=== PATIENT | male | born 1980 | race Caucasian/White ===

== ENCOUNTER 2023-10-02 11:35 | Inpatient (IN) ==
--- NOTE | 2023-10-02 11:43 | Emergency Department Note ---
Impression & Plan Cellulitis of neck, Fever, Acute neck pain ED Provider Note NAME: JUNIOR WETZEL AGE: 43 SEX: M : 1980 ARRIVES VIA: Walk-In INFORMANT: Patient, ED PROVIDER(S): Fidel Lorenzo MD CHIEF COMPLAINT: Sore throat, rash, fever MEDICAL DECISION MAKING: Patient presents with sore throat rash and fever. IV was established and blood work obtained along with strep test mono and tickborne diseases. Patient was treated with IV Toradol and IV fluids. CT soft tissue neck obtained along with a screening chest x-ray. The patient's blood work shows a normal white count H&H and platelet count. The patient's kidney function is unremarkable with normal electrolytes. Patient's Babesia and Anaplasma smears are negative. The patient's Lyme screen negative. Patient strep negative [place] negative. Patient's chest x-ray negative. CT soft tissue neck I did discuss with the radiologist Dr. Chi. Extensive inflammatory changes noted to the right neck extending from the right upper neck to the upper chest wall. Also noted to the right superior mediastinum and inflammatory changes involving the right parapharyngeal fat and retropharyngeal soft tissues. Patient's airway is patent not stridulous and is handling secretions. Given the extensive nature without clear etiology I did speak with the on-call hospitalist service Dr. Pineda and the patient was admitted to the medicine service Discussion w/ other healthcare providers: Dr. Chi with radiology Dr. Pineda with inpatient medicine service Prior /Outside records reviewed: None Differential diagnosis: Viral syndrome, otitis, pharyngitis, pneumonia, influenza, meningitis, urinary tract infection, sepsis, bacteremia, as well as other pathologies. Diagnostics, as interpreted by me: ECG: Normal sinus rhythm, rate of 76, normal intervals, normal axis no ST elevations or TWI Cardiac monitoring: An order was placed for continuous cardiac monitoring. The monitor shows a rate of 76 with sinus rhythm. Patient was placed on pulse oximetry Medical decision rules: None Imaging studies: I informally interpreted the patient's chest x-ray does not show obvious pneumonia or pneumothorax with formal report to follow. HPI: Patient presents due to concern for right-sided neck swelling fever as well as rash. Patient was seen by myself several days ago at which time the patient had mild swelling to the patient believes that this has worsened. The patient still has had fever. Patient states that he did have most recent fever although not 100.4 but was 100.2 at 3:00 this morning. The patient did take Motrin. The patient states that he has felt chilled. He did develop a rash yesterday and was started on Bactrim which was prescribed by his uncle 2 days prior. Patient states that he does have some itchiness but only at the ankles. The patient's daughter was recently ill. No recent travel. Patient denies any changes in creams detergents or diet. Patient denies any falls or trauma no nausea vomiting or abdominal pain or diarrhea. The patient does complain of some nasal congestion postnasal drip. Patient did have a negative bio fire and strep test completed during his most recent evaluation several days ago. Patient denies any issues with breathing or swallowing. Patient denies any insect bites PAST MEDICAL HISTORY: See Below PAST SURGICAL HISTORY: See Below SOCIAL HISTORY: See Below HOME MEDICATIONS: See Below ALLERGIES: See Below VITALS: See Below PHYSICAL EXAMINATION: GENERAL: NAD, non-toxic. EYE EXAM: Normal conjunctiva. PERRL, no anisocoria and EOM's grossly intact w/o pain. OROPHARYNX: Moist mucus membranes, grossly normal dentition. Posterior pharynx is clear with no tonsillar uvular deviation or swelling. NECK: Trachea midline, no stridor. Supple, no nuchal rigidity, right-sided swelling noted overlying the SCM as well as lymphadenopathy posterior to the SCM, no signs of meningismus. FROM of the neck with good chin to chest and neck extension. LUNGS: Clear to auscultation. Normal chest wall mechanics. HEART: NSR, no MRG. ABDOMEN: Abdomen soft, non-tender, no masses, no rebound or guarding. BACK: No CVA TTP. SKIN: Diffuse blanching maculopapular nonconfluent rash located over the extremities. UPPER EXTREMITIES: Upper extremities are grossly normal. LOWER EXTREMITIES: Grossly normal, no edema. NEURO EXAM: A&O x3, cranial nerves II-XII grossly intact, normal speech, moves all 4 extremities. Past Med/Surg History Problem List (Updated 10/02/23 @ 15:27 by Fidel Lorenzo MD) Cellulitis of neck (Acute) Adenopathy, cervical (Acute) Acute neck pain (Acute) Fever (Acute) Social History Smoking Status: Never smoker Preferred Language: Icelandic Feels Safe at Home: Yes Allergies Allergies Allergy/AdvReac Type Severity Reaction Status Date / Time Penicillins Allergy Anaphylaxis Verified 10/02/23 15:11 Home Meds Home Medications Medication Instructions Recorded Confirmed atorvastatin 20 mg tablet 20 mg PO DAILY 10/02/23 10/02/23 levothyroxine 150 mcg tablet 150 mcg PO DAILY 10/02/23 10/02/23 (Synthroid) Results & Data (ED) Vital Signs Vital Signs - 24 hr 10/02/23 11:38 10/02/23 12:26 10/02/23 12:38 Temperature 36.6 C Temperature Source Oral Pulse Rate 73 77 Pulse Rate [Apical] Pulse Rhythm [Apical] Respiratory Rate 18 Respiratory Effort / Characteristics Non-Labored Spontaneous Respiratory Depth Normal Blood Pressure 146/80 H Blood Pressure [Right Arm] Blood Pressure Mean 102 Blood Pressure Mean [Right Arm] Blood Pressure Position Sitting Pulse Oximetry 99 99 Oxygen Delivery Method Room Air Room Air Sepsis Recent Fever Within 48 Hours Yes Sepsis New/Unexplained Change in Mental Status No Sepsis Action Taken by Nursing No Action Required 10/02/23 15:00 Temperature Temperature Source Pulse Rate Pulse Rate [Apical] 69 Pulse Rhythm [Apical] Regular Respiratory Rate 19 Respiratory Effort / Characteristics Respiratory Depth Blood Pressure Blood Pressure [Right Arm] 156/85 H Blood Pressure Mean Blood Pressure Mean [Right Arm] 108 Blood Pressure Position Pulse Oximetry 97 Oxygen Delivery Method Room Air Sepsis Recent Fever Within 48 Hours Sepsis New/Unexplained Change in Mental Status Sepsis Action Taken by Half-Way Medications Current Medication List: was personally reviewed by me Laboratory Data Attestation: I reviewed the patient's lab results. 10/02/23 12:45 10/02/23 12:45 Lab Results 10/02/23 Range/Units 12:45 WBC 8.38 (4.8-10.8) K/ul RBC 5.46 (4.70-6.10) M/uL Hgb 15.8 (14.0-18.0) g/dl Hct 46.6 (42.0-52.0) % MCV 85.3 (80.0-100.0) fL MCH 28.9 (25.0-34.0) pg MCHC 33.9 (32.0-36.0) g/dL RDW Std Deviation 39.8 (36.4-46.3) fL RDW Coeff of Vicki 12.9 (11.5-14.5) % Plt Count 229 (130-400) K/uL MPV 10.0 (9.4-12.4) fL Immature Gran % (Auto) 0.2 % Neut % (Auto) 77.2 % Lymph % (Auto) 9.2 % [place] % (Auto) 10.3 % Eos % (Auto) 2.7 % Baso % (Auto) 0.4 % Neut # (Auto) 6.47 (1.40-6.50) K/uL Lymph # (Auto) 0.77 L (1.20-3.40) K/uL [place] # (Auto) 0.86 H (0.11-0.59) K/uL Eos # (Auto) 0.23 (0.00-0.50) K/uL Baso # (Auto) 0.03 (0.00-0.20) K/uL Immature Gran # (Auto) 0.02 (0.01-0.20) K/uL RBC Morphology Unremarkable Sodium 137 (136-145) mmol/L Potassium 4.1 (3.5-5.1) mmol/L Chloride 101 (98-107) mmol/L Carbon Dioxide 27 (21-32) mmol/L Anion Gap 9 (3-11) BUN 15 (6-23) mg/dl Creatinine 1.08 (0.6-1.4) mg/dl Est Cr Clr Drug Dosing 95.1 ml/min Est GFR ( Amer) 96.2 ml/min Est GFR (Non-Af Amer) 83.0 ml/min BUN/Creatinine Ratio 13.9 (10-20) Glucose 97 (70-99(Fasting)) mg/dl Calcium 9.3 (8.6-10.3) mg/dl Magnesium 2.2 (1.7-2.4) mg/dl Total Bilirubin 0.9 (0.2-1.0) mg/dl AST 17 (13-39) U/L ALT 21 (7-52) U/L Alkaline Phosphatase 75 (34-104) U/L Total Protein 7.7 (6.0-8.3) gm/dl Albumin 4.4 (3.4-5.0) gm/dl Globulin 3.3 (2.5-4.0) gm/dl Albumin/Globulin Ratio 1.3 (0.9-2) Procalcitonin 0.14 (0-0.5) ng/ml TSH 3.452 (0.300-4.500) uIu/ml Anaplasma Smear See Comment Babesia Smear See Comment Lyme Disease Screen Negative (Negative) Monoscreen Negative (Negative) Group A Strep (PCR) NOT DETECTED (NotDetected) Administered Medications Ceftriaxone Sodium (Rocephin) 2,000 mg in 50 mls @ 100 mls/hr IV NOW STA Stop: 10/02/23 15:28 Last Admin: 10/02/23 15:09 Dose: 100 mls/hr Documented By: ARPIT Discontinued Medications Sodium Chloride (Nss) 1,000 mls @ 999 mls/hr IV .Q1H1M MAGO Stop: 10/02/23 13:00 Last Admin: 10/02/23 12:32 Dose: 999 mls/hr Documented By: CINDA Ioversol (Optiray 320 100ml) 94 ml IV ONCE ONE Stop: 10/02/23 14:11 Last Admin: 10/02/23 14:10 Dose: 94 ml Documented By: EVERETT Ketorolac Tromethamine (Ketorolac Tromethamine 15 Mg/Ml Vial) 10 mg IV NOW ONE Stop: 10/02/23 12:01 Last Admin: 10/02/23 12:32 Dose: 10 mg Documented By: CINDA Imaging Data Radiologist's Impression: Soft Tissue Neck CT 10/02/23 12:00 CT SCAN OF THE NECK WITH IV CONTRAST CLINICAL HISTORY: Right-sided neck pain and swelling. COMPARISON STUDY: No priors. TECHNIQUE: Following the IV administration of 94 cc of Optiray 320, CT scan of the soft tissues of the neck was performed from the skull base to the upper chest. Images are reviewed in the axial, sagittal, and coronal planes. IV contrast was administered without complication. A dose lowering technique was utilized adhering to the principles of ALARA. FINDINGS: Soft tissues: There is extensive deep soft tissue inflammation and trace subcutaneous fluid seen throughout the right neck. This extends from below the right parotid gland into the right upper chest, and there is corresponding inflammation of the right parapharyngeal fat. There is also edema within the retropharyngeal tissues. The right sternocleidomastoid muscle appears mildly enlarged and edematous, inflammatory change is seen around the right carotid artery and jugular vein. These vessels remain patent. There are numerous mildly enlarged right cervical chain lymph nodes. No organized fluid collection is seen to suggest abscess. Mild inflammation is seen extending into the right aspect of the superior mediastinum. Edema also involves the peripheral right paraspinous musculature. No soft tissue gas is seen in the right neck. Pharynx: As noted above there is infiltration of the right parapharyngeal fat as well as the retropharyngeal fat. No organized fluid collection is seen to indicate abscess. The left parapharyngeal fat is maintained. The airway is patent. There is no evidence of mass lesion. The vocal cords are symmetric. The epiglottis is normal. There is no significant periodontal disease. Lymphadenopathy: Mildly enlarged right cervical chain lymph nodes are likely reactive. Thyroid: Normal in size and attenuation. Salivary glands: The parotid and submandibular glands are within normal limits. Brain parenchyma: The visualized brain parenchyma at the skull base is normal in appearance. Vascular structures: The carotid arteries and jugular veins are patent bilaterally. Skeletal structures: Imaged portions of the calvarium at the skull base are within normal limits. The cervical spine appears intact noting discectomy change at C6-C7. Orbits: The bony facets are intact and orbital contents are normal as visualized. Sinuses and mastoids: There is mild mucosal thickening within the right ethmoid sinuses. Trace mucosal thickening seen in maxillary antra noting a 1.9 cm retention cyst on the right. The mastoid air cells are well pneumatized. Lung apices: Visualized apical lung parenchyma is clear. IMPRESSION: 1. There is an extensive inflammatory process seen extending from the right upper neck into the right chest wall and right superior mediastinum as detailed above. This almost certainly on an infectious basis, and the source of infection is not clearly delineated. 2. No organized fluid collection is seen to indicate abscess. 3. Inflammatory change involves the right parapharyngeal fat as well as the retropharyngeal soft tissues. 4. The airway appears patent. 5. The right internal jugular vein is patent. 6. Additional findings as above. ACT 112: Negative or not required by law. Electronically signed by: Hugh Can M.D. 10/02/2023 2:59 PM Chest X-Ray 10/02/23 12:02 SINGLE VIEW CHEST CLINICAL HISTORY: Generalized weakness. FINDINGS: An AP, portable, upright chest radiograph is obtained. No prior studies are available for comparison at the time of dictation. The cardiomediastinal silhouette is unremarkable. The lungs and pleural spaces are clear. No pneumothorax is seen. The bony thorax is grossly intact. IMPRESSION: No active disease in the chest. ACT 112: Negative or not required by law. Electronically signed by: Hugh Can M.D. 10/02/2023 12:33 PM Discharge Plan Visit Data Chief Complaint: Illness Stated Complaint: FEVER, NECK PAIN/SWELLING , RASH ED Provider: Fidel Lorenzo Discharge Problem: Cellulitis of neck, Fever, Acute neck pain Forms Stand Alone Forms: [facility] Prescriptions Prescriptions: No Action atorvastatin 20 mg tablet 20 mg PO DAILY levothyroxine [Synthroid] 150 mcg tablet 150 mcg PO DAILY Referrals Referrals: Jennifer Hickman RN [Registered Nurse] - Discharge Problem: Fever Qualifiers: Fever type: unspecified Qualified Code(s): R50.9 - Fever, unspecified
[2023-10-02] MEDS: KETOROLAC TROMETHAMINE 15 MG/ML VIAL IV ONE (12:32)
[2023-10-02] MEDS: SODIUM CHLORIDE 0.9% 1,000 ML IV SCH (12:32)
--- NOTE | 2023-10-02 12:35 | XRay Report ---
SINGLE VIEW CHEST CLINICAL HISTORY: Generalized weakness. FINDINGS: An AP, portable, upright chest radiograph is obtained. No prior studies are available for c omparison at the time of dictation. The cardiomediastinal silhouette is unremarkable. The lungs and p leural spaces are clear. No pneumothorax is seen. The bony thorax is grossly intact. IMPRESSION: No active disease in the chest. ACT 112: Negative or not required by law. Electronically signed by: Hugh Can M.D. 10/02/2023 12:33 PM
[2023-10-02 13:12] LABS: Basophils # (auto) 0.03 K/uL (0.00-0.20); Basophils % (auto) 0.4 %; Eosinophils # (auto) 0.23 K/uL (0.00-0.50); Eosinophils % (auto) 2.7 %; Hematocrit (blood only) 46.6 % (42.0-52.0); Hemoglobin 15.8 g/dl (14.0-18.0); Immature Granulocytes # (auto) 0.02 K/uL (0.01-0.20); Immature Granulocytes % (auto) 0.2 %; Lymphocytes # (auto) 0.77 K/uL (1.20-3.40); Lymphocytes % (auto) 9.2 %; Mean Corpuscular Hemoglobin 28.9 pg (25.0-34.0); Mean Corpuscular Hgb Conc 33.9 g/dL (32.0-36.0); Mean Corpuscular Volume 85.3 fL (80.0-100.0); Monocytes # (auto) 0.86 K/uL (0.11-0.59); Monocytes % (auto) 10.3 %; Neutrophils # (auto) 6.47 K/uL (1.40-6.50); Neutrophils % (auto) 77.2 %; Platelet Count 229 K/uL (130-400); RDW Coefficient of Variation 12.9 % (11.5-14.5); RDW Standard Deviation 39.8 fL (36.4-46.3); Red Blood Count 5.46 M/uL (4.70-6.10); White Blood Count 8.38 K/ul (4.8-10.8)
[2023-10-02 13:26] LABS: Albumin Globulin Ratio 1.3 (0.9-2); Albumin Level 4.4 gm/dl (3.4-5.0); BUN Creatinine Ratio 13.9 (10-20); Bilirubin,Total 0.9 mg/dl (0.2-1.0); Calcium 9.3 mg/dl (8.6-10.3); Creatinine Clr Calc Pharmacy 95.1 ml/min; Est GFR (African American) 96.2 ml/min; Globulin 3.3 gm/dl (2.5-4.0); Magnesium 2.2 mg/dl (1.7-2.4); Potassium 4.1 mmol/L (3.5-5.1); Total Protein 7.7 gm/dl (6.0-8.3)
[2023-10-02 13:34] LABS: Procalcitonin 0.14 ng/ml (0-0.5)
[2023-10-02 13:36] LABS: RBC Morphology Unremarkable
[2023-10-02 13:41] LABS: Thyroid Stimulating Hormone 3.452 uIu/ml (0.300-4.500)
[2023-10-02 14:00] LABS: Lyme Screen Rflx Confirmation Negative (Negative)
[2023-10-02] MEDS: OPTIRAY 320 100ml IV ONE (14:10)
[2023-10-02] MEDS ORDERED: VANCOMYCIN CONSULT ACTIVE PRN (14:59)
--- NOTE | 2023-10-02 15:02 | CT Scan Report ---
CT SCAN OF THE NECK WITH IV CONTRAST CLINICAL HISTORY: Right-sided neck pain and swelling. COMPARISON STUDY: No priors. TECHNIQUE: Following the IV administration of 94 cc of Optiray 320, CT scan of the soft tissues of th e neck was performed from the skull base to the upper chest. Images are reviewed in the axial, sagitt al, and coronal planes. IV contrast was administered without complication. A dose lowering techniqu e was utilized adhering to the principles of ALARA. FINDINGS: Soft tissues: There is extensive deep soft tissue inflammation and trace subcutaneous fluid seen thro ughout the right neck. This extends from below the right parotid gland into the right upper chest, an d there is corresponding inflammation of the right parapharyngeal fat. There is also edema within the retropharyngeal tissues. The right sternocleidomastoid muscle appears mildly enlarged and edematous, inflammatory change is seen around the right carotid artery and jugular vein. These vessels remain p atent. There are numerous mildly enlarged right cervical chain lymph nodes. No organized fluid collec tion is seen to suggest abscess. Mild inflammation is seen extending into the right aspect of the sup erior mediastinum. Edema also involves the peripheral right paraspinous musculature. No soft tissue g as is seen in the right neck. Pharynx: As noted above there is infiltration of the right parapharyngeal fat as well as the retropha ryngeal fat. No organized fluid collection is seen to indicate abscess. The left parapharyngeal fat i s maintained. The airway is patent. There is no evidence of mass lesion. The vocal cords are symmetri c. The epiglottis is normal. There is no significant periodontal disease. Lymphadenopathy: Mildly enlarged right cervical chain lymph nodes are likely reactive. Thyroid: Normal in size and attenuation. Salivary glands: The parotid and submandibular glands are within normal limits. Brain parenchyma: The visualized brain parenchyma at the skull base is normal in appearance. Vascular structures: The carotid arteries and jugular veins are patent bilaterally. Skeletal structures: Imaged portions of the calvarium at the skull base are within normal limits. The cervical spine appears intact noting discectomy change at C6-C7. Orbits: The bony facets are intact and orbital contents are normal as visualized. Sinuses and mastoids: There is mild mucosal thickening within the right ethmoid sinuses. Trace mucosa l thickening seen in maxillary antra noting a 1.9 cm retention cyst on the right. The mastoid air ambreen ls are well pneumatized. Lung apices: Visualized apical lung parenchyma is clear. IMPRESSION: 1. There is an extensive inflammatory process seen extending from the right upper neck into the right chest wall and right superior mediastinum as detailed above. This almost certainly on an infectious basis, and the source of infection is not clearly delineated. 2. No organized fluid collection is seen to indicate abscess. 3. Inflammatory change involves the right parapharyngeal fat as well as the retropharyngeal soft tiss ues. 4. The airway appears patent. 5. The right internal jugular vein is patent. 6. Additional findings as above. ACT 112: Negative or not required by law. Electronically signed by: Hugh Can M.D. 10/02/2023 2:59 PM
[2023-10-02] MEDS: cefTRIAXone SODIUM 2,000 MG/50 ML BAG IV STA (15:09)
[2023-10-02 15:34] LABS: Appearance Urine Clear (Clear); Bilirubin Urine Negative (Negative); Blood Urine Negative (Negative); Color Urine Yellow; Glucose Urine UA Negative (Negative); Ketones Urine Negative (Negative); Leukocyte Esterase Urine Negative (Negative); Nitrite Urine Negative (Negative); Protein Urine Negative (Negative); Specific Gravity Urine > 1.045 (1.000-1.030); Urobilinogen Urine Positive (Negative)
--- NOTE | 2023-10-02 15:40 | History & Physical Report ---
Date of Service October 02, 2023 Assessment & Plan (1) Rash: (2) Adenopathy, cervical: (3) Fever: Plan: This is a 43yo M with a PMH of hypothyroidism, dyslipidemia and other medical problems listed below who presents with neck swelling x 5 days and fever. R sternocleidomastoid neck swelling, fever x 5 days, now with diffuse papular rash Daughter recently with viral illness - negative w/u including blood cx and is now improving No leukocytosis, ESR 40, procal WNL, TSH WNL, CRP pending, anaplasma smear without evidence of inclusion bodies, anaplasma and remaining tick serology pending, resp viral panel pending Soft tissue neck CT with : 1. Extensive inflammatory process seen extending from the right upper neck into the right chest wall and right superior mediastinum as detailed above. This almost certainly on an infectious basis, source of infection is not clearly delineated. 2. No organized fluid collection is seen to indicate abscess. 3. Inflammatory change involves the right parapharyngeal fat as well as the retropharyngeal soft tissues. 4. The airway appears patent. 5. The right internal jugular vein is patent. Concern for possible sternocleidomastoid pyomyositis Continue empiric Rocephin and Vanco Will touch base with ID and ENT for other recs No SOB, airway is patent but due to evolving swelling will monitor in PCU overnight Schedule tylenol, ice and topical pain relief Will avoid steroids for now (4) Dyslipidemia: Plan: Continue statin (5) Hypothyroidism: Plan: Continue levothyroxine DVT Ppx: Code status: FULL PCP: Dispo: Admit to PCU for airway monitoring overnight Patient seen in collaboration with Dr. Pineda. Please see addendum. I spent a total of 75 minutes coordinating, documenting, and providing care for this patient excluding time spent in the performance of separately billed services. History of Present Illness Chief Complaint: neck swelling, rash Primary Care Provider: NO PCP This is a 43yo M with a PMH of hypothyroidism, dyslipidemia and other medical problems listed below who presents with neck swelling x 5 days. Patient woke up on Wednesday morning with a stiff neck. Woke up with a fever of 101 F overnight on Wednesday that resolved with Tylenol. Went to ED due to increased neck swelling on Wednesday and covid and RSV tests we negative, instructed to take ibuprofen and tylenol for pain/swelling. . Noticed slight rash on arms yesterday and when he woke today rash had spread to lower extremities as well and returned to ED. [place] been [place] a lot over the past month but denies tick bites and generally checks when he comes inside. His 11yo daughter had similar symptoms of 6 days of fever as well as muscle aches but had a negative workup - no lyme, negative blood culture and is starting to feel better. No lightheadedness, CP, SOB, N/V, abd pain, dysuria, diarrhea or constipation. History of cardiac arrhythmia last year thought to be a side effect of vaccine but was seen by cardiology and has since resolved. Allergies Allergy/AdvReac Type Severity Reaction Status Date / Time Penicillins Allergy Anaphylaxis Verified 10/02/23 15:11 Home Medications Medication Instructions Recorded Confirmed Type atorvastatin 20 mg tablet 20 mg PO DAILY 10/02/23 10/02/23 History levothyroxine 150 mcg tablet 150 mcg PO DAILY 10/02/23 10/02/23 History (Synthroid) Past Med/Surg History Problem List (Updated 10/02/23 @ 16:03 by Tierney Metcalf PA-C) Rash Hypothyroidism Dyslipidemia Cellulitis of neck (Acute) Adenopathy, cervical (Acute) Acute neck pain (Acute) Fever (Acute) Surgical History H/O: vasectomy H/O eye surgery H/O cervical spine surgery Family History (Updated 10/02/23 @ 15:40 by Tierney Metcalf PA-C) Other Diabetes Social History Smoking Status: Never smoker Hx Alcohol Use: No Hx Substance Use: No Preferred Language: [place] Feels Safe at Home: Yes Review of Systems Review of Systems: At least ten systems reviewed and negative except as noted in the HPI. Physical Exam Physical Exam: Please see Dr. Pineda' addendum for physical exam. Results & Data Results & Data Vital Signs (Past 12 Hours) Vital Signs Temp Pulse Pulse Resp BP BP Pulse Ox 10/02/23 15:00 69 19 156/85 H 97 10/02/23 12:38 99 10/02/23 12:26 77 10/02/23 11:38 36.6 C 73 18 146/80 H 99 O2 Del Method 10/02/23 15:00 Room Air 10/02/23 12:38 Room Air 10/02/23 12:26 10/02/23 11:38 Room Air Laboratory Results Short CBC 10/02/23 Range/Units 12:45 WBC 8.38 (4.8-10.8) K/ul Hgb 15.8 (14.0-18.0) g/dl Hct 46.6 (42.0-52.0) % Plt Count 229 (130-400) K/uL BMP 10/02/23 12:45 Sodium 137 Potassium 4.1 Chloride 101 Carbon Dioxide 27 BUN 15 Creatinine 1.08 Glucose 97 Calcium 9.3 Liver Function 10/02/23 Range/Units 12:45 Total Bilirubin 0.9 (0.2-1.0) mg/dl AST 17 (13-39) U/L ALT 21 (7-52) U/L Alkaline Phosphatase 75 (34-104) U/L Albumin 4.4 (3.4-5.0) gm/dl Urine 10/02/23 Range/Units 15:16 Urine Color Yellow Urine Appearance Clear (Clear) Urine pH 6.0 (4.5-7.5) Ur Specific Hunter > 1.045 H (1.000-1.030) Urine Protein Negative (Negative) Urine Glucose (UA) Negative (Negative) Diagnostic Findings Soft Tissue Neck CT 10/02/23 12:00 CT SCAN OF THE NECK WITH IV CONTRAST CLINICAL HISTORY: Right-sided neck pain and swelling. COMPARISON STUDY: No priors. TECHNIQUE: Following the IV administration of 94 cc of Optiray 320, CT scan of the soft tissues of the neck was performed from the skull base to the upper chest. Images are reviewed in the axial, sagittal, and coronal planes. IV contrast was administered without complication. A dose lowering technique was utilized adhering to the principles of ALARA. FINDINGS: Soft tissues: There is extensive deep soft tissue inflammation and trace subcutaneous fluid seen throughout the right neck. This extends from below the right parotid gland into the right upper chest, and there is corresponding inflammation of the right parapharyngeal fat. There is also edema within the retropharyngeal tissues. The right sternocleidomastoid muscle appears mildly enlarged and edematous, inflammatory change is seen around the right carotid artery and jugular vein. These vessels remain patent. There are numerous mildly enlarged right cervical chain lymph nodes. No organized fluid collection is seen to suggest abscess. Mild inflammation is seen extending into the right aspect of the superior mediastinum. Edema also involves the peripheral right paraspinous musculature. No soft tissue gas is seen in the right neck. Pharynx: As noted above there is infiltration of the right parapharyngeal fat as well as the retropharyngeal fat. No organized fluid collection is seen to indicate abscess. The left parapharyngeal fat is maintained. The airway is patent. There is no evidence of mass lesion. The vocal cords are symmetric. The epiglottis is normal. There is no significant periodontal disease. Lymphadenopathy: Mildly enlarged right cervical chain lymph nodes are likely reactive. Thyroid: Normal in size and attenuation. Salivary glands: The parotid and submandibular glands are within normal limits. Brain parenchyma: The visualized brain parenchyma at the skull base is normal in appearance. Vascular structures: The carotid arteries and jugular veins are patent bilaterally. Skeletal structures: Imaged portions of the calvarium at the skull base are within normal limits. The cervical spine appears intact noting discectomy change at C6-C7. Orbits: The bony facets are intact and orbital contents are normal as visualized. Sinuses and mastoids: There is mild mucosal thickening within the right ethmoid sinuses. Trace mucosal thickening seen in maxillary antra noting a 1.9 cm retention cyst on the right. The mastoid air cells are well pneumatized. Lung apices: Visualized apical lung parenchyma is clear. IMPRESSION: 1. There is an extensive inflammatory process seen extending from the right upper neck into the right chest wall and right superior mediastinum as detailed above. This almost certainly on an infectious basis, and the source of infection is not clearly delineated. 2. No organized fluid collection is seen to indicate abscess. 3. Inflammatory change involves the right parapharyngeal fat as well as the retropharyngeal soft tissues. 4. The airway appears patent. 5. The right internal jugular vein is patent. 6. Additional findings as above. ACT 112: Negative or not required by law. Electronically signed by: Hugh Can M.D. 10/02/2023 2:59 PM Chest X-Ray 10/02/23 12:02 SINGLE VIEW CHEST CLINICAL HISTORY: Generalized weakness. FINDINGS: An AP, portable, upright chest radiograph is obtained. No prior studies are available for comparison at the time of dictation. The cardiomediast inal silhouette is unremarkable. The lungs and pleural spaces are clear. No pneumothorax is seen. The bony thorax is grossly intact. IMPRESSION: No active disease in the chest. ACT 112: Negative or not required by law. Electronically signed by: Hugh Can M.D. 10/02/2023 12:33 PM Supervising Physician Co-Signing Physician Notes I have seen and discussed the case with the collaborating advanced practitioner. I agree with the above H&P. I have reviewed and confirmed the patients medical history, the findings on physical examination, and the patients diagnosis and treatment plan with ASHWIN and agree with the information documented. In short, Mr. Villagomez is a 43 year old man with history of hypothyroidism and HLD who is admitted for increased neck swelling and fevers. Patient reports 4 days of neck pain and ~12 hours of diffuse rash. Fevers up to 101. GENERAL APPEARANCE: AxOx4, generally well-appearing male no acute distress. HEENT: NC, AT. MMM. EOMI, clear conjunctiva, oropharynx clear. NECK: large firm mass extending from HEART: Normal rate and regular rhythm, normal S1/S1, no m/r/g LUNGS: CTAB, moving air well. No crackles or wheezes are heard. ABDOMEN: Soft, nontender, nondistended with good bowel sounds heard. BACK: No CVAT, no obvious deformity. EXTREMITIES: Without cyanosis, clubbing or edema. NEUROLOGICAL: Grossly nonfocal. Alert and oriented, moving all 4 extremities. CN not formally tested but appear grossly intact. Skin: diffuse papular rash, sparing soles/palms/groin/buttock/face #Right sternocleidomastoid swelling CT Soft Tissue w/ con: extensive inflammatory process seen extending from the right upper neck into the right chest wall and right superior mediastinum; right sternocleidomastoid muscle appears mildly enlarged and edematous, No organized fluid collection is seen to indicate abscess. Inflammatory change involves the right parapharyngeal fat as well as the retropharyngeal soft tissues. -DDx pyomyositis developing? infectious v inflammatory ESR 40 Lyme negative, Monospot negative, Step swab negative -HIV EBV and B19 in am -Blood cultures pending -Tick serologies pending -Repeat CBC/CMP/Mag/Phos in am Discussed with ID, Dr. Enrico Ohara over phone -Strep possible, follow blood cx -Fusobacterium potential source, ensure anaerobe coverage, if no growth in 48 hour can d/c -consider parasitic infection if no improvement on abx -Recently ate friend's "home made darrin" --not sure what meat, low suspicion given normal~eosinophils at this time -repeat procal in am -Vanc/Cefepime/Flagyl at this time -ENT aware--will review, no further recommendations PCU for airway monitoring 2/2 extensive inflammation #Diffuse papular rash, sparing palms/soles #Fevers -No polyarthritis noted, viral exanthem v bacterial? work up as above tylenol prn Rest of plan as above I spent a total of 35 minutes coordinating, documenting, and providing care for this patient excluding time spent in the performance of separately billed services. All of the aforementioned completed outside of collaborating with the assigned advanced practitioner for a full treatment plan. I have reviewed the advanced practitioner's documentation, and I agree with, and take responsibility for the plan of care (3) Fever Fever type: unspecified Qualified Code(s): R50.9 - Fever, unspecified
[2023-10-02] MEDS: VANCOMYCIN HCL 2,250 MG in SODIUM CHLORIDE 0.9% 500 ML IV ONE (15:49)
[2023-10-02] MEDS ORDERED: ONDANSETRON INJ 2 MG/ML 2 ML VIAL IV PRN (18:14)
[2023-10-02] MEDS ORDERED: [UNRECOGNIZED DRUG - OTHER] IV SCH (18:14)
[2023-10-02] MEDS ORDERED: POLYETHYLENE (MIRALAX) 17 GM PACK PO PRN (18:14)
[2023-10-02] MEDS: metroNIDAZOLE 500 MG/100 ML BAG IV SCH (19:23)
[2023-10-02] MEDS: CYCLOBENZAPRINE HCL 10 MG TAB PO PRN (19:28)
[2023-10-02] MEDS: ACETAMINOPHEN 325 MG TAB PO PRN (19:28)
[2023-10-02] MEDS ORDERED: HYDROmorphone INJ 0.5 MG/0.5 ML SYR IV PRN (19:36)
[2023-10-02] MEDS: CEFEPIME 2,000 MG in SYRINGE 0 ML IV SCH (21:30)
[2023-10-02 21:48] LABS: C Reactive Protein 6.62 mg/dl (0-0.5)
[2023-10-03] MEDS: VANCOMYCIN HCL 1,250 MG in SODIUM CHLORIDE 0.9% 250 ML IV SCH (03:24)
[2023-10-03] MEDS: LEVOTHYROXINE SODIUM 150 MCG TABLET PO SCH (05:37)
--- NOTE | 2023-10-03 07:17 | Electrocardiogram Report ---
Test Reason : Blood Pressure : / mmHG Vent. Rate : 076 BPM Atrial Rate : 076 BPM P-R Int : 130 ms QRS Dur : 092 ms QT Int : 390 ms P-R-T Axes : 030 037 032 degrees QTc Int : 438 ms Normal sinus rhythm Normal ECG No previous ECGs available Confirmed by Layo Cote ([id number]) on 10/03/2023 7:17:13 AM Referred By: REFERRED SELF Confirmed By:Hemant oCte
[2023-10-03] MEDS: ATORVASTATIN 20 MG TAB PO SCH (08:16)
--- NOTE | 2023-10-03 09:45 | ENT Consultation ---
Date of Consultation October 03, 2023 Assessment & Plan (1) Localized swelling, mass and lump, neck: Plan 43yM with R SCM/paraspinous muscle inflammation and cervical adenopathy in the setting of fever and rash. Imaging and exam without drainable fluid collection, subcutaneous gas to suggest necrotizing fascitis. Normal FFL. I suspect this represents a myositis. He is clinically improving on antibiotics. -OK for PO from ENT standpoint -Continue abx, agree with ID recs -Recommend decadron 10mg Q8H x2-3 doses -F/u infectious workup including tick-borne illnesses -If not clinically improving or if worsening, would repeat CT neck with contrast in 48-72 hours -Please call with questions/issues History of Present Illness Attending Physician: Beverley Steele MD History of Present Illness 43yM seen for evaluation of R neck swelling. Began 6 days ago in the setting of low-grade fevers. Then developed diffuse papular rash. Presented to the ED where WBC normal, ESR and CRP elevated, CT neck with contrast showed per my read diffuse inflammatory changes of the right SCM, paraspinous musculature with mild retropharyngeal and right parapharyngeal edema. No rim-enhancing fluid collection. R IJ appears compressed but remains patent, no evidence of thrombosis. No subcutaneous gas. Admitted to the hospitalist service and started on vanc/cefepime. No preceding illness or trauma. No noted insect bites. daughter with viral illness last week history includes C5 ACDF. Never smoker. Otherwise healthy aside from hypothyroidism and HLD. Today reports improvement in right neck swelling and stiffness. No throat pain, odynophagia, dysphagia, dysphonia, dyspnea/stridor. Allergies Allergy/AdvReac Type Severity Reaction Status Date / Time Penicillins Allergy Anaphylaxis Verified 10/02/23 15:11 Home Medications Medication Instructions Recorded Confirmed Type atorvastatin 20 mg tablet 20 mg PO DAILY 10/02/23 10/02/23 History levothyroxine 150 mcg tablet 150 mcg PO DAILY 10/02/23 10/02/23 History (Synthroid) Patient History Surgical History H/O: vasectomy H/O eye surgery H/O cervical spine surgery Family History Other Diabetes Social History Smoking Status: Never smoker Second Hand Exposure: No; Do You Dip or Chew Tobacco: No; Tobacco Cessation Education Requested by Patient: No Hx Alcohol Use: Yes Alcohol type: beer Hx Substance Use: No Preferred Language: Northern Irish Communication Ability: Effective [employer] Required: No Beliefs That Will Affect Care: None Current Living Situation: Spouse Other Information That Helps Us Care for You: No Feels Safe at Home: Yes Safety Concerns: Feels Safe At This Time Assistive Devices: None Review of Systems Review of Systems: A 10 point review of systems is negative except as noted above Physical Exam Physical Exam: General: No acute distress, nonlabored respirations Face: normal facial motion Eyes: Extraocular motion is intact. Normal sclera and conjunctiva Ears: External ears normal Nose: no external deformity, nares patent. No rhinorrhea or epistaxis. Mild septal deviation to the right. Mild to moderate mucosal edema and inferior turbinate hypertrophy Oral cavity: clear, no masses or lesions involving the lips, gingiva, GBS, oral tongue, floor of mouth, hard or soft palate, retromolar trigone. No obvious dental disease. Oropharynx: clear, 1+ tonsils. Very mild edema of the right oropharyngeal ti ssue Neck: Right SCM firm and indurated with mild overlying edema, no significant cellulitis. Palpable right level 5 lymphadenopathy, firm. No nuchal rigidity. left neck normal without palpable masses or lesion Normal parotid and submandibular glands bilateral Procedure: Flexible fiberoptic laryngoscopy Indication: Right neck swelling Details: Following the topical application of afrin and lidocaine, the flexible laryngoscope was inserted into the nasal cavity. The septum, turbinates, and nasal mucosa were normal. The nasopharynx was normal. The palatine tonsils were normal bilaterally. The base of tongue and vallecula were normal. The epiglottis, bilateral arytenoids, and bilateral aryepiglottic folds, and bilateral false vocal folds were normal. The true vocal folds were normal withou t masses or lesions. There was normal mobility of the true vocal folds bilaterally. The bilateral pyriform sinuses and postcricoid space was normal. There was no pooling of secretions. No aspiration or penetration was visualized. The patient tolerated the procedure well. Results & Data Vital Signs (Past 12 Hours) Vital Signs Temp Pulse Pulse Resp BP Pulse Ox O2 Del Method 10/03/23 07:50 37.1 C 68 18 126/78 95 Room Air 10/03/23 03:08 37.3 C 77 16 120/70 95 Room Air 10/02/23 22:49 37.0 C 92 H 18 151/80 H 98 Room Air 10/02/23 22:01 84 10/02/23 21:37 37.7 C H PG Care Time/CCT Total # of Minutes Spent Total Time Spent with Patient: Total time spent is greater than 50% in coordination of care (as documented) at patient's floor/unit and/or counseling patient: Coding Level of Care Code 94645 IN/OBS CONSULT LVL 4,60M (25 - SIGNIFICANT, SEPARATELY IDENTIFIABLE ) Diagnoses Localized swelling, mass and lump, neck R22.1 CPT Codes LARYNGOSCOPY DIAGNOSTIC FLEXIBLE - 37590 ([id number])
[2023-10-03 10:03] LABS: Hematocrit (blood only) 40.6 % (42.0-52.0); Hemoglobin 13.8 g/dl (14.0-18.0); Mean Corpuscular Hemoglobin 28.8 pg (25.0-34.0); Mean Corpuscular Volume 84.6 fL (80.0-100.0); Mean Platelet Volume 9.6 fL (9.4-12.4); Platelet Count 213 K/uL (130-400); RDW Coefficient of Variation 12.6 % (11.5-14.5); RDW Standard Deviation 38.6 fL (36.4-46.3); White Blood Count 6.11 K/ul (4.8-10.8)
[2023-10-03 10:08] LABS: Albumin Globulin Ratio 1.4 (0.9-2); Albumin Level 3.8 gm/dl (3.4-5.0); Bilirubin,Total 0.9 mg/dl (0.2-1.0); Calcium 8.9 mg/dl (8.6-10.3); Creatinine Clr Calc Pharmacy 94.6 ml/min; Est GFR (African American) 95.2 ml/min; Est GFR (Non-African American) 82.1 ml/min; Globulin 2.7 gm/dl (2.5-4.0); Magnesium 2.1 mg/dl (1.7-2.4); Phosphorus 2.8 mg/dl (2.5-4.9); Potassium 4.1 mmol/L (3.5-5.1); Total Protein 6.5 gm/dl (6.0-8.3)
--- NOTE | 2023-10-03 11:03 | Pharmacy Report ---
Pharmacy PK ABX Note - Date of Service October 03, 2023 - Assessment and Plan Assessment 43 year old M admitted with R SCM/paraspinous muscle inflammation and cervical adenopathy with fever and rash. ENT consulted, suspects myositis. Patient currently receiving vancomycin + cefepime + metronidazole. ID also consulted. Neck CT revealed an extensive inflammatory process, likely infectious. No organized fluid collection. Pertinent microbiologic data includes: BC x 2 pending Plan Vancomycin * Loading dose: 2250 mg IV x 1 * Maintenance dose: 1250 mg IV every 12 hours * Regimen is predicted to achieve target AUC/SELINA of 400-600 mg/L.hr * Level ordered for: 10/03 @ 1400 * Ordered x 48 hours - duration will need reassess on 10/03 Pharmacy will continue to follow and will adjust dose/frequency as necessary. Thank you. Pharmacy has transitioned to AUC monitoring for vancomycin. AUC/SELINA is the preferred PK/PD target and is associated with decreased risk of nephrotoxicity compared to traditional trough targets.
--- NOTE | 2023-10-03 12:13 | Hospitalist Progress Note ---
Date of Service October 03, 2023 Assessment & Plan (1) Rash: (2) Adenopathy, cervical: (3) Fever: Plan: This is a 43yo M with a PMH of hypothyroidism, dyslipidemia and other medical problems listed below who presents with neck swelling x 5 days and fever. R sternocleidomastoid neck swelling, fever x 5 days, now with diffuse papular rash Daughter recently with viral illness - negative w/u including blood cx and is now improving No leukocytosis, ESR 40, procal WNL, TSH WNL, CRP pending, anaplasma smear without evidence of inclusion bodies, anaplasma and remaining tick serology pending, resp viral panel pending Soft tissue neck CT with : 1. Extensive inflammatory process seen extending from the right upper neck into the right chest wall and right superior mediastinum as detailed above. This almost certainly on an infectious basis, source of infection is not clearly delineated. 2. No organized fluid collection is seen to indicate abscess. 3. Inflammatory change involves the right parapharyngeal fat as well as the retropharyngeal soft tissues. 4. The airway appears patent. 5. The right internal jugular vein is patent. Continue empiric Rocephin and Vanco and Flagyl was added as well to cover anaerobes Appreciate ENT input and recommendation-no significant laryngeal and/or throat lesions No airway compromise. No drainage from the ears and no external skin break noted around right neck Anaplasma, babesiosis, Lyme disease have been negative, streptococcal serology has been negative. Other viral serology are pending Schedule tylenol, ice and topical pain relief Has been feeling much better and remains afebrile Will start dexamethasone as advised by the ENT (4) Dyslipidemia: Plan: Continue statin (5) Hypothyroidism: Plan: Continue levothyroxine DVT Ppx: Code status: FULL PCP: Dispo: Admit to PCU for airway monitoring overnight Patient seen in collaboration with Dr. Pineda. Please see addendum. I spent a total of 75 minutes coordinating, documenting, and providing care for this patient excluding time spent in the performance of separately billed services. Admission and Anticipated Discharge Date Admission Date: October 02, 2023 Subjective 10/03/2023 The patient was seen and examined in telemetry unit He has been complaining of right neck swelling since Wednesday with fever on ongoing since Wednesday No problem with swallowing and no shortness of breath Denies any pain in the ears or any problem with teeth Denies any sore throat Review of Systems Review of Systems: All systems reviewed and are unremarkable except as noted below Physical Exam Physical Exam: Lying in bed without any acute distress Results & Data Results & Data Vital Signs (Past 12 Hours) Vital Signs Temp Pulse Resp BP Pulse Ox O2 Del Method 10/03/23 11:26 37.0 C 79 18 124/69 97 Room Air 10/03/23 07:50 37.1 C 68 18 126/78 95 Room Air 10/03/23 03:08 37.3 C 77 16 120/70 95 Room Air (3) Fever Fever type: unspecified Qualified Code(s): R50.9 - Fever, unspecified
[2023-10-03] MEDS ORDERED: DEXAMETHASONE SOD INJ 4 MG/ML VIAL IV SCH (12:45)
[2023-10-03] MEDS: dexAMETHasone 10 MG in SYRINGE 0 ML IV SCH (13:46)
[2023-10-04 07:52] LABS: Hematocrit (blood only) 43.4 % (42.0-52.0); Hemoglobin 14.8 g/dl (14.0-18.0); Mean Corpuscular Hemoglobin 28.5 pg (25.0-34.0); Mean Corpuscular Hgb Conc 34.1 g/dL (32.0-36.0); Mean Corpuscular Volume 83.6 fL (80.0-100.0); Mean Platelet Volume 9.8 fL (9.4-12.4); Platelet Count 275 K/uL (130-400); RDW Coefficient of Variation 12.1 % (11.5-14.5); Red Blood Count 5.19 M/uL (4.70-6.10); White Blood Count 12.63 K/ul (4.8-10.8)
[2023-10-04 08:21] LABS: BUN Creatinine Ratio 19.6 (10-20); Calcium 9.9 mg/dl (8.6-10.3); Creatinine Clr Calc Pharmacy 107.8 ml/min; Est GFR (African American) 109.6 ml/min; Est GFR (Non-African American) 94.6 ml/min; Potassium 4.7 mmol/L (3.5-5.1)
[2023-10-04 08:33] LABS: Anisocytosis Present; Basophils # (auto) 0.03 K/uL (0.00-0.20); Basophils % (auto) 0.2 %; Immature Granulocytes # (auto) 0.04 K/uL (0.01-0.20); Immature Granulocytes % (auto) 0.3 %; Monocytes # (auto) 0.25 K/uL (0.11-0.59); Neutrophils # (auto) 11.81 K/uL (1.40-6.50); Neutrophils % (auto) 93.5 %
--- NOTE | 2023-10-04 12:06 | Infectious Disease Consult ---
Date of Service October 04, 2023 Telehealth Information I performed this visit using a real-time telehealth connection between my location and the patients location ([facility]). After connecting through interactive tele-video, patient was identified by name and date of and/or wristband check.Patient (or authorized healthcare canvas products sales representative) was informed that this was a telemedicine visit and it was being conducted confidentially over secure lines. My office door was closed and no one else was present in the room with me.Patient (or authorized healthcare canvas products sales representative) provided consent to proceed with the visit, expressed an understanding of privacy and security of the telemedicine visit, and gave permission to have a hospital canvas products sales representative in the room in order to assist with the visit and to conduct portions of the visit, as needed. I informed the patient (or authorized healthcare canvas products sales representative) that I reviewed their record and presented the opportunity for them to ask any questions regarding the visit today. The patient agreed to participate. Assessment & Plan (1) Localized swelling, mass and lump, neck: Plan: de-escalate to cefadroxil and flagyl (2) Rash: Plan: Consider dermatology consult (3) Cellulitis of neck: Plan: de-escalate to cefadroxil and flagyl low suspicion for Lemiere's Syndrome Plan Recommend de-escalating to ancef and flagyl as MRSA PCR is negative and because for initial therapy for immunocompetent individuals without sepsis, we recommend antibiotic directed against staphylococci and beta-hemolytic streptococci.Patient can be transitioned to cefadroxil and flagyl on discharge if he shows clinical improvement on ancef .He will require treatment for 2-4 weeks depending on his clinical improvement and if he he is not resolving I would recommend repeating the CT neck after 2 weeks Follow up tick borne panel but his clinical picture does not correlate with Lyme or anaplasma .Thank you for allowing us to participate in the care of this patient ID will sign off History of Present Illness History of Present Illness 43yo M with a PMHx of hypothyroidism and dyslipidemia who presented with neck swelling x [address] imaging of the right side of his neck raised concern for possible sternocleidomastoid pyomyositis and he was started on ceftriaxone and vancomycin and there were no drainable abscesses .He is currently on cefepime,flagyl and vancomycin and his blood cultures are NGTD Allergies Allergy/AdvReac Type Severity Reaction Status Date / Time Penicillins Allergy Anaphylaxis Verified 10/02/23 15:11 Home Medications Medication Instructions Recorded Confirmed Type atorvastatin 20 mg tablet 20 mg PO DAILY 10/02/23 10/02/23 History levothyroxine 150 mcg tablet 150 mcg PO DAILY 10/02/23 10/02/23 History (Synthroid) Patient History Surgical History H/O: vasectomy H/O eye surgery H/O cervical spine surgery Family History Other Diabetes Social History Smoking Status: Never smoker Second Hand Exposure: No; Do You Dip or Chew Tobacco: No; Tobacco Cessation Education Requested by Patient: No Hx Alcohol Use: Yes Alcohol type: beer Hx Substance Use: No Preferred Language: Georgian Communication Ability: Effective Refrigeration Technician Required: No Beliefs That Will Affect Care: None Current Living Situation: Spouse Other Information That Helps Us Care for You: No Feels Safe at Home: Yes Safety Concerns: Feels Safe At This Time Assistive Devices: None Review of Systems Awake alert oriented erythematous rash to neck and arms Physical Exam alert oriented no distress ,erythematous swelling to right side of neck and rash to arms Results & Data Vital Signs (Past 12 Hours) Vital Signs Temp Pulse Resp BP BP Pulse Ox O2 Del Method 10/04/23 07:37 36.8 C 87 16 132/80 98 Room Air 10/04/23 03:33 36.5 C 65 17 129/72 95 Room Air Laboratory Results WBC [id number] Diagnostic Findings IMPRESSION: 1. There is an extensive inflammatory process seen extending from the right upper neck into the right chest wall and right superior mediastinum as detailed above. This almost certainly on an infectious basis, and the source of infection is not clearly delineated. 2. No organized fluid collection is seen to indicate abscess. 3. Inflammatory change involves the right parapharyngeal fat as well as the retropharyngeal soft tissues. 4. The airway appears patent. 5. The right internal jugular vein is patent. 6. Additional findings as above.
--- NOTE | 2023-10-04 12:08 | Hospitalist Progress Note ---
Date of Service October 04, 2023 Assessment & Plan (1) Rash: Plan: Minimal scattered maculopapular rash-has been fading away gradually (2) Adenopathy, cervical: (3) Fever: Plan: This is a 43yo M with a PMH of hypothyroidism, dyslipidemia and other medical problems listed below who presents with neck swelling x 5 days and fever. R sternocleidomastoid neck swelling, fever x 5 days, now with diffuse papular rash Daughter recently with viral illness - negative w/u including blood cx and is now improving No leukocytosis, ESR 40, procal WNL, TSH WNL, CRP pending, anaplasma smear without evidence of inclusion bodies, anaplasma and remaining tick serology pending, resp viral panel pending Soft tissue neck CT with : 1. Extensive inflammatory process seen extending from the right upper neck into the right chest wall and right superior mediastinum as detailed above. This almost certainly on an infectious basis, source of infection is not clearly delineated. 2. No organized fluid collection is seen to indicate abscess. 3. Inflammatory change involves the right parapharyngeal fat as well as the retropharyngeal soft tissues. 4. The airway appears patent. 5. The right internal jugular vein is patent. Continue empiric Rocephin and Vanco and Flagyl was added as well to cover anaerobes Appreciate ENT input and recommendation-no significant laryngeal and/or throat lesions No airway compromise. No drainage from the ears and no external skin break noted around right neck Anaplasma, babesiosis, Lyme disease have been negative, streptococcal serology has been negative. Other viral serology are pending Schedule tylenol, ice and topical pain relief Has been feeling much better and remains afebrile Will start dexamethasone as advised by the ENT Clinically much better-right lateral neck swelling has improved a lot No symptoms of sore throat, dysphagia, slight drainage from the adjoining neck or ear Awaiting ID input and recommendation (4) Dyslipidemia: Plan: Continue statin (5) Hypothyroidism: Plan: Continue levothyroxine DVT Ppx: Code status: FULL PCP: Dispo: Admit to PCU for airway monitoring overnight Patient seen in collaboration with Dr. Pineda. Please see addendum. I spent a total of 75 minutes coordinating, documenting, and providing care for this patient excluding time spent in the performance of separately billed services. Admission and Anticipated Discharge Date Admission Date: October 02, 2023 Subjective 10/03/2023 The patient was seen and examined in telemetry unit He has been complaining of right neck swelling since Wednesday with fever on ongoing since Wednesday No problem with swallowing and no shortness of breath Denies any pain in the ears or any problem with teeth Denies any sore throat 10/04/2023 The patient was seen and examined in telemetry unit He has been feeling much better Improved right lateral neck swelling Rash has been improving gradually Denies any fever and no chills, no problems with swallowing and no sore throat Review of Systems Review of Systems: All systems reviewed and are unremarkable except as noted below Physical Exam Physical Exam: Lying in bed comfortably Similar examination on 10/03/2023 unfortunately was not transmitted in the note. And the patient was examined as of today Constitutional: well developed and well nourished; not ill appearing Eyes: PERRL, conjunctivae normal, anicteric sclerae ENMT: external ear and nose normal, oropharynx normal Neck: + abnormal visual inspection (Minimal sw elling involving the right lateral upper neck) and neck nontender Respiratory: no respiratory distress Auscultation: lungs clear to auscultation bilaterally Cardiovascular: Rate/Rhythm: regular rate and regular rhythm; not tachycardic Heart Sounds: normal S1 and normal S2; no murmur Extremities: no edema Gastrointestinal (Abdomen): Inspection/Auscultation: normal bowel sounds; abdomen not distended Percussion/Palpation: abdomen soft; abdomen nontender Musculoskeletal: No acute arthritis involving any of the joints Skin: Scattered generalized maculopapular rash-gradually fading away Neurologic: normal touch/pain/proprioception and moves all extremities; no focal motor deficits Psychiatric: A+Ox3, euthymic affect Lymphatic: no cervical or axillary lymphadenopathy Results & Data Results & Data Vital Signs (Past 12 Hours) Vital Signs Temp Pulse Resp BP BP Pulse Ox O2 Del Method 10/04/23 07:37 36.8 C 87 16 132/80 98 Room Air 10/04/23 03:33 36.5 C 65 17 129/72 95 Room Air Laboratory Results Short CBC 10/04/23 Range/Units 07:31 WBC 12.63 H (4.8-10.8) K/ul Hgb 14.8 (14.0-18.0) g/dl Hct 43.4 (42.0-52.0) % Plt Count 275 (130-400) K/uL BMP 10/04/23 07:31 Sodium 136 Potassium 4.7 Chloride 101 Carbon Dioxide 28 BUN 19 Creatinine 0.97 Glucose 141 H Calcium 9.9 Medications Administered Current Inpatient Medications Acetaminophen (Acetaminophen 325 Mg Tab) 650 mg PO Q4H PRN PRN Reason: Pain or Fever Stop: 11/01/23 18:13 Last Admin: 10/03/23 11:50 Dose: 650 mg Atorvastatin Calcium (Atorvastatin 20 Mg Tab) 20 mg PO DAILY MAGO Stop: 11/02/23 08:59 Last Admin: 10/04/23 07:42 Dose: 20 mg Cyclobenzaprine HCl (Cyclobenzaprine Hcl 10 Mg Tab) 10 mg PO Q8H PRN PRN Reason: spasm Stop: 11/01/23 18:13 Last Admin: 10/03/23 11:51 Dose: 10 mg Hydromorphone HCl (Hydromorphone Inj 0.5 Mg/0.5 Ml Syr) 0.5 mg IV Q4H PRN PRN Reason: Severe Pain (Scale 7, 8, 9,10) Stop: 10/16/23 19:35 Cefepime HCl 2,000 mg/ Syringe 20 mls @ 5 mls/min IV Q8H [facility]; Protocol Stop: 10/09/23 21:59 Last Admin: 10/04/23 06:00 Dose: 5 mls/min Metronidazole (Flagyl) 500 mg in 100 mls @ 100 mls/hr IV Q8H [facility] Stop: 10/04/23 18:59 Last Infusion: 10/04/23 03:08 Dose: Infused Vancomycin HCl 1,250 mg/ (Sodium Chloride) 275 mls @ 200 mls/hr IV Q12H [facility] Stop: 10/05/23 03:59 Last Infusion: 10/04/23 04:36 Dose: Infused Dexamethasone 10 mg/ Syringe 2.5 mls @ 1 mls/min IV Q8H [facility] Stop: 11/02/23 12:59 Last Admin: 10/04/23 04:36 Dose: 1 mls/min Levothyroxine Sodium (Levothyroxine Sodium 150 Mcg Tablet) 150 mcg PO DAILYBB [facility] Stop: 11/02/23 06:29 Last Admin: 10/04/23 06:00 Dose: 150 mcg Miscellaneous Information (Vancomycin Consult Active) 1 each N/A UD PRN PRN Reason: Consult Stop: 11/01/23 14:58 Ondansetron HCl (Ondansetron Inj 2 Mg/Ml 2 Ml Vial) 4 mg IV Q6H PRN PRN Reason: Nausea Stop: 11/01/23 18:13 Polyethylene Glycol (Polyethylene (Miralax) 17 Gm Pack) 17 gm PO DAILY PRN PRN Reason: Constipation Stop: 11/01/23 18:13 (3) Fever Fever type: unspecified Qualified Code(s): R50.9 - Fever, unspecified
[2023-10-04 15:19] LABS: Est GFR (African American) 79.9 ml/min; Est GFR (Non-African American) 68.9 ml/min
[2023-10-04] MEDS: ceFAZolin 2000MG 2,000 MG/15 ML SYR IV SCH (16:26)
[2023-10-05 03:47] VITALS: O2SAT 97
[2023-10-05 08:47] LABS: Hemoglobin 13.6 g/dl (14.0-18.0); Mean Corpuscular Hemoglobin 28.5 pg (25.0-34.0); Mean Corpuscular Volume 83.7 fL (80.0-100.0); Mean Platelet Volume 9.9 fL (9.4-12.4); Platelet Count 325 K/uL (130-400); RDW Coefficient of Variation 12.5 % (11.5-14.5); RDW Standard Deviation 37.9 fL (36.4-46.3); Red Blood Count 4.78 M/uL (4.70-6.10); White Blood Count 16.99 K/ul (4.8-10.8)
[2023-10-05 09:02] LABS: BUN Creatinine Ratio 24.2 (10-20); Calcium 9.4 mg/dl (8.6-10.3); Creatinine Clr Calc Pharmacy 109.7 ml/min; Est GFR (African American) 112.4 ml/min; Potassium 4.3 mmol/L (3.5-5.1)
[2023-10-05 09:11] LABS: Basophils # (auto) 0.03 K/uL (0.00-0.20); Basophils % (auto) 0.2 %; Immature Granulocytes # (auto) 0.14 K/uL (0.01-0.20); Immature Granulocytes % (auto) 0.8 %; Lymphocytes # (auto) 0.59 K/uL (1.20-3.40); Lymphocytes % (auto) 3.5 %; Monocytes # (auto) 0.34 K/uL (0.11-0.59); Neutrophils # (auto) 15.89 K/uL (1.40-6.50); Neutrophils % (auto) 93.5 %
--- NOTE | 2023-10-05 09:56 | Ears,Nose,Throat Progress Note ---
Date of Service October 05, 2023 Assessment & Plan (1) Localized swelling, mass and lump, neck: Plan 43yM with R SCM/paraspinous muscle inflammation and cervical adenopathy in the setting of fever and rash. Imaging and exam without drainable fluid collection, subcutaneous gas to suggest necrotizing fascitis. Normal FFL. I suspect this represents a myositis. He is clinically improving on antibiotics and steroids. -OK for d/c from ENT standpoint -Continue abx for total of 10 days -Transition to medrol dosepak as an outpatient -F/u infectious workup including tick-borne illnesses -F/u 2 weeks in office - [phone] Admission and Anticipated Discharge Date Admission Date: October 02, 2023 Subjective JESSIKA o/n. Feels mildly improved. No throat pain, dysphagia, odynophagia, dysphonia, respiratory issues Physical Exam Physical Exam: Neck: Right SCM less firm and indurated, no significant cellulitis. Palpable right level 5 lymphadenopathy, mobile. No nuchal rigidity. left neck normal without palpable masses or lesion Normal parotid and submandibular glands bilaterally Results & Data Vital Signs (Past 12 Hours) Vital Signs Temp Pulse Pulse Resp BP Pulse Ox O2 Del Method 10/05/23 07:14 36.7 C 66 17 125/73 97 Room Air 10/05/23 03:41 36.7 C 76 18 127/67 97 Room Air 10/04/23 22:41 36.6 C 73 20 122/72 96 Room Air 10/04/23 22:15 70 PG Care Time/CCT Total # of Minutes Spent Total Time Spent with Patient: Total time spent is greater than 50% in coordination of care (as documented) at patient's floor/unit and/or counseling patient: Coding Level of Care Code 55037 SUB INP/OBS CARE 2/35MIN Diagnoses Localized swelling, mass and lump, neck R22.1
[2023-10-05 10:58] VITALS: PULSE 81; RESP 19; TEMP 98.2
--- NOTE | 2023-10-05 12:18 | Hospitalist Progress Note ---
Date of Service October 05, 2023 Assessment & Plan (1) Rash: Plan: Minimal scattered maculopapular rash-has been fading away gradually (2) Adenopathy, cervical: (3) Fever: Plan: This is a 43yo M with a PMH of hypothyroidism, dyslipidemia and other medical problems listed below who presents with neck swelling x 5 days and fever. R sternocleidomastoid neck swelling, fever x 5 days, now with diffuse papular rash Daughter recently with viral illness - negative w/u including blood cx and is now improving No leukocytosis, ESR 40, procal WNL, TSH WNL, CRP pending, anaplasma smear without evidence of inclusion bodies, anaplasma and remaining tick serology pending, resp viral panel pending Soft tissue neck CT with : 1. Extensive inflammatory process seen extending from the right upper neck into the right chest wall and right superior mediastinum as detailed above. This almost certainly on an infectious basis, source of infection is not clearly delineated. 2. No organized fluid collection is seen to indicate abscess. 3. Inflammatory change involves the right parapharyngeal fat as well as the retropharyngeal soft tissues. 4. The airway appears patent. 5. The right internal jugular vein is patent. Continue empiric Rocephin and Vanco and Flagyl was added as well to cover anaerobes Appreciate ENT input and recommendation-no significant laryngeal and/or throat lesions No airway compromise. No drainage from the ears and no external skin break noted around right neck Anaplasma, babesiosis, Lyme disease have been negative, streptococcal serology has been negative. Other viral serology are pending Schedule tylenol, ice and topical pain relief Has been feeling much better and remains afebrile Will start dexamethasone as advised by the ENT Clinically much better-right lateral neck swelling has improved a lot No symptoms of sore throat, dysphagia, slight drainage from the adjoining neck or ear Awaiting ID input and recommendation Clinically much better and was reevaluated by ENT-recommended to have an appointment in 2 weeks Antibiotics will be continued for 14 days from today as per ID recommendations for 2 to 4 weeks of antibiotic (4) Dyslipidemia: Plan: Continue statin (5) Hypothyroidism: Plan: Continue levothyroxine DVT Ppx: Code status: FULL PCP: Dispo: Admit to PCU for airway monitoring overnight Will be discharged home this afternoon Admission and Anticipated Discharge Date Admission Date: October 02, 2023 Subjective 10/03/2023 The patient was seen and examined in telemetry unit He has been complaining of right neck swelling since Wednesday with fever on ongoing since Wednesday No problem with swallowing and no shortness of breath Denies any pain in the ears or any problem with teeth Denies any sore throat 10/04/2023 The patient was seen and examined in telemetry unit He has been feeling much better Improved right lateral neck swelling Rash has been improving gradually Denies any fever and no chills, no problems with swallowing and no sore throat 10/05/2023 The patient was seen and examined in telemetry unit He has been feeling much better and the swelling of the right lateral neck is almost gone Rash has been fading away gradually Denies any fever and no chills and no problem with swallowing and no sore throat Review of Systems Review of Systems: All systems reviewed and are unremarkable except as noted below Physical Exam Physical Exam: Lying in bed comfortably Similar examination on 10/03/2023 unfortunately was not transmitted in the note. And the patient was examined as of today Constitutional: well developed and well nourished; not ill appearing Eyes: PERRL, conjunctivae normal, anicteric sclerae ENMT: external ear and nose normal, oropharynx normal Neck: + abnormal visual inspection (Minimal sw elling involving the right later al upper neck) and neck nontender Respiratory: no respiratory distress Auscultation: lungs clear to auscultation bilaterally Cardiovascular: Rate/Rhythm: regular rate and regular rhythm; not tachycardic Heart Sounds: normal S1 and normal S2; no murmur Extremities: no edema Gastrointestinal (Abdomen): Inspection/Auscultation: normal bowel sounds; abdomen not distended Percussion/Palpation: abdomen soft; abdomen nontender Musculoskeletal: No acute arthritis involving any of the joints Neurologic: normal touch/pain/proprioception and moves all extremities; no focal motor deficits Psychiatric: A+Ox3, euthymic affect Lymphatic: no cervical or axillary lymphadenopathy Results & Data Results & Data Vital Signs (Past 12 Hours) Vital Signs Temp Pulse Resp BP Pulse Ox O2 Del Method 10/05/23 10:57 36.8 C 81 19 133/69 97 Room Air 10/05/23 07:14 36.7 C 66 17 125/73 97 Room Air 10/05/23 03:41 36.7 C 76 18 127/67 97 Room Air Laboratory Results Short CBC 10/05/23 Range/Units 08:20 WBC 16.99 H (4.8-10.8) K/ul Hgb 13.6 L (14.0-18.0) g/dl Hct 40.0 L (42.0-52.0) % Plt Count 325 (130-400) K/uL BMP 10/04/23 10/05/23 14:31 08:20 Sodium 138 Potassium 4.3 Chloride 101 Carbon Dioxide 28 BUN 23 Creatinine 1.26 0.95 D Glucose 165 H Calcium 9.4 Medications Administered Current Inpatient Medications Acetaminophen (Acetaminophen 325 Mg Tab) 650 mg PO Q4H PRN PRN Reason: Pain or Fever Stop: 11/01/23 18:13 Last Admin: 10/03/23 11:50 Dose: 650 mg Atorvastatin Calcium (Atorvastatin 20 Mg Tab) 20 mg PO DAILY MAGO Stop: 11/02/23 08:59 Last Admin: 10/05/23 08:49 Dose: 20 mg Cyclobenzaprine HCl (Cyclobenzaprine Hcl 10 Mg Tab) 10 mg PO Q8H PRN PRN Reason: spasm Stop: 11/01/23 18:13 Last Admin: 10/04/23 21:15 Dose: 10 mg Hydromorphone HCl (Hydromorphone Inj 0.5 Mg/0.5 Ml Syr) 0.5 mg IV Q4H PRN PRN Reason: Severe Pain (Scale 7, 8, 9,10) Stop: 10/16/23 19:35 Dexamethasone 10 mg/ Syringe 2.5 mls @ 1 mls/min IV Q8H [facility] Stop: 11/02/23 12:59 Last Admin: 10/05/23 05:56 Dose: 1 mls/min Cefazolin Sodium (Ancef 2000mg) 2,000 mg in 15 mls @ 3.75 mls/min IV Q8H [facility] Stop: 10/11/23 14:44 Last Admin: 10/05/23 05:56 Dose: 3.75 mls/min Levothyroxine Sodium (Levothyroxine Sodium 150 Mcg Tablet) 150 mcg PO DAILYBB [facility] Stop: 11/02/23 06:29 Last Admin: 10/05/23 05:56 Dose: 150 mcg Ondansetron HCl (Ondansetron Inj 2 Mg/Ml 2 Ml Vial) 4 mg IV Q6H PRN PRN Reason: Nausea Stop: 11/01/23 18:13 Polyethylene Glycol (Polyethylene (Miralax) 17 Gm Pack) 17 gm PO DAILY PRN PRN Reason: Constipation Stop: 11/01/23 18:13 (3) Fever Fever type: unspecified Qualified Code(s): R50.9 - Fever, unspecified
[2023-10-05 13:57] LABS: EBV Nuclear Ag Antibody <18.00 U/mL; EBV Virus Capsid Ag IgG Ab <18.00 U/mL
[2023-10-05 14:59] VITALS: BP 132/80
--- NOTE | 2023-10-05 18:26 | Discharge Summary ---
Date of Service October 05, 2023 Admission HPI Per Admitting Provider This is a 43yo M with a PMH of hypothyroidism, dyslipidemia and other medical problems listed below who presents with neck swelling x 5 days. Patient woke up on Wednesday morning with a stiff neck. Woke up with a fever of 101 F overnight on Wednesday that resolved with Tylenol. Went to ED due to increased neck swelling on Wednesday and covid and RSV tests we negative, instructed to take ibuprofen and tylenol for pain/swelling. . Noticed slight rash on arms yesterday and when he woke today rash had spread to lower extremities as well and returned to ED. [place] been [place] a lot over the past month but denies tick bites and generally checks when he comes inside. His 11yo daughter had similar symptoms of 6 days of fever as well as muscle aches but had a negative workup - no lyme, negative blood culture and is starting to feel better. No lightheadedness, CP, SOB, N/V, abd pain, dysuria, diarrhea or constipation. History of cardiac arrhythmia last year thought to be a side effect of vaccine but was seen by cardiology and has since resolved. Admission Exam Per Admitting Provider GENERAL APPEARANCE: AxOx4, generally well-appearing male no acute distress. HEENT: NC, AT. MMM. EOMI, clear conjunctiva, oropharynx clear. NECK: large firm mass extending from HEART: Normal rate and regular rhythm, normal S1/S1, no m/r/g LUNGS: CTAB, moving air well. No crackles or wheezes are heard. ABDOMEN: Soft, nontender, nondistended with good bowel sounds heard. BACK: No CVAT, no obvious deformity. EXTREMITIES: Without cyanosis, clubbing or edema. NEUROLOGICAL: Grossly nonfocal. Alert and oriented, moving all 4 extremities. CN not formally tested but appear grossly intact. Skin: diffuse papular rash, sparing soles/palms/groin/buttock/face Principal Diagnosis Cellulitis of right neck with adenopathy, rash Discharge Exam Lying in bed comfortably Similar examination on 10/03/2023 unfortunately was not transmitted in the note. And the patient was examined as of today Constitutional well developed and well nourished; not ill appearing Eyes PERRL, conjunctivae normal, anicteric sclerae ENMT external ear and nose normal, oropharynx normal Neck + abnormal visual inspection (Minimal swelling involving the right lateral upper neck) and neck nontender Respiratory no respiratory distress Auscultation: lungs clear to auscultation bilaterally Cardiovascular Rate/Rhythm: regular rate and regular rhythm; not tachycardic Heart Sounds: normal S1 and normal S2; no murmur Extremities: no edema Gastrointestinal (Abdomen) Inspection/Auscultation: normal bowel sounds; abdomen not distended Percussion/Palpation: abdomen soft; abdomen nontender Neurologic normal touch/pain/proprioception and moves all extremities; no focal motor deficits Psychiatric A+Ox3, euthymic affect Lymphatic no cervical or axillary lymphadenopathy Discharge Data Allergies Allergy/AdvReac Type Severity Reaction Status Date / Time Penicillins Allergy Anaphylaxis Verified 10/02/23 15:11 Consultations 10/02/23 15:23 ED Decision to Admit Stat 10/02/23 16:38 Consult Infectious Diseases Routine Consult Otolaryngology (Head and Neck) Routine Ordered Studies 10/02/23 12:00 CT soft tissue neck w con Stat Hospital Course (1) Rash: Minimal scattered maculopapular rash-has been fading away gradually (2) Adenopathy, cervical: (3) Fever: This is a 43yo M with a PMH of hypothyroidism, dyslipidemia and other medical problems listed below who presents with neck swelling x 5 days and fever. R sternocleidomastoid neck swelling, fever x 5 days, now with diffuse papular rash Daughter recently with viral illness - negative w/u including blood cx and is now improving No leukocytosis, ESR 40, procal WNL, TSH WNL, CRP pending, anaplasma smear without evidence of inclusion bodies, anaplasma and remaining tick serology pending, resp viral panel pending Soft tissue neck CT with : 1. Extensive inflammatory process seen extending from the right upper neck into the right chest wall and right superior mediastinum as detailed above. This almost certainly on an infectious basis, source of infection is not clearly delineated. 2. No organized fluid collection is seen to indicate abscess. 3. Inflammatory change involves the right parapharyngeal fat as well as the retropharyngeal soft tissues. 4. The airway appears patent. 5. The right internal jugular vein is patent. Continue empiric Rocephin and Vanco and Flagyl was added as well to cover anaerobes Appreciate ENT input and recommendation-no significant laryngeal and/or throat lesions No airway compromise. No drainage from the ears and no external skin break noted around right neck Anaplasma, babesiosis, Lyme disease have been negative, streptococcal serology has been negative. Other viral serology are pending Schedule tylenol, ice and topical pain relief Has been feeling much better and remains afebrile Will start dexamethasone as advised by the ENT Clinically much better-right lateral neck swelling has improved a lot No symptoms of sore throat, dysphagia, slight drainage from the adjoining neck or ear Awaiting ID input and recommendation Clinically much better and was reevaluated by ENT-recommended to have an appointment in 2 weeks Antibiotics will be continued for 14 days from today as per ID recommendations for 2 to 4 weeks of antibiotic (4) Dyslipidemia: Continue statin (5) Hypothyroidism: Continue levothyroxine DVT Ppx: Code status: FULL PCP: Dispo: Admit to PCU for airway monitoring overnight Will be discharged home this afternoon Total Time Total Time Spent Total Time Spent (In Minutes): 40 minutes Discharge Plan Discharge Items Patient Disposition: Home - Self-Care Reason For Visit: NECK SWELLING, RASH Discharge Diagnosis: Cellulitis of right neck with adenopathy, rash Condition on Discharge: Good Activity: Resume your previous activity Non-emergency contact: Primary Care Provider Call non-emergency contact if: you have any medication questions and your symptoms worsen Follow-up/Referrals: Chris Casillas PA-C [Other] (Date & Time 10/11/2023 11:00 AM Provider Chris Casillas PA-C Department [facility] ) Iron Hooker MD [Physician] - (Dr Hooker office will contact you for a 2 week follow up appointment.) Diet: Regular Addtl Attending Provider Instructions: Please finish the course of antibiotics Please give appointment with the healthcare providers You need to have a repeat CT scan in 2 weeks through your PCP If your rash is persisting please have a referral to see a lamp mechanic from your PCP Pending Studies at Discharge: Yes Studies:: Viral serology Stand-Alone Forms: [employer], Work/School Release, Smoking Manjeet sation Medications and DC Order Prescriptions: New cefadroxil 500 mg capsule 500 mg PO Q8H Qty: 42 0RF metronidazole 500 mg tablet 500 mg PO Q8H 14 Days Qty: 42 0RF Lactobacillus acidophilus 10 billion cell capsule 100 mmu cells PO DAILY Qty: 30 0RF Continued atorvastatin 20 mg tablet 20 mg PO DAILY levothyroxine [Synthroid] 150 mcg tablet 150 mcg PO DAILY Discharge Orders: Discharge Order (Routine); Ordered 10/05/23 Ordered By: Beverley Steele Admission Data Admit Date/Time: 10/02/23 15:42 Attending Provider: Beverley Steele Admit Provider: Preeti Pineda Primary Care Provider: PCP,NO Other Providers: Preeti Pineda; Chapito Camacho; Fabricio Tim; Giuseppe Metcalf I.; Thor Fields II; Marianela Dennis; Enrico Ohara; Glen Fletcher; Lisa Cruz; Iron Hooker Other Interventions: Discharge Summary Assessment (RN) Last Done: 10/05/23 14:57
[2023-10-06 14:10] LABS: Ehrlichia chaff DNA Bld Negative (Negative)
[2023-10-06 19:43] LABS: Parvovirus B19 Qual Source Plasma; Parvovirus B19 Qualitative Not Detected (Not Detected)
[2023-10-08 18:08] LABS: Babesia microti DNA Not Detected (Not Detected); Q Fever IgG, Phase I NEGATIVE; Q Fever Phase I IgM Antibody NEGATIVE; Q Fever Phase II IgG Antibody NEGATIVE; Q Fever Phase II IgM Antibody NEGATIVE; R. typhi IgG Ab NOT DETECTED; R. typhi IgM Ab NOT DETECTED; RMSF IgG Ab NOT DETECTED; RMSF IgM Ab NOT DETECTED
== END 2023-10-05 16:41 | disposition home or self-care (01) | DRG 603 ==
LOC: ED 11:35 → 2S 15:42 → SUATTDRO 15:42 → 2S 18:35